=== PATIENT | male | born 1995 | race Caucasian/White ===

== ENCOUNTER → 2017-07-15 | Outpatient (REF) | payer BC ==
[~2017-07-15] MED LIST: LEVA0.6320 IH; PRED20TA6 PO
[2017-07-15 15:00] LABS: PLATELET COUNT, AUTOMATED 325 K/uL (150-450)
== END ==
PROVIDERS: ATTEND Physician Assistant Medical
DX: R07.9 Chest pain, unspecified (principal)
CPT/HCPCS: 82040; 82247; 82310; 82374; 82435; 82565; 82947; 84075; 84132; 84155; 84295; 84450; 84460; 84484; 84520; 85025; 85379